=== PATIENT | female | born 1990 | race Hispanic/Latino ===

== ENCOUNTER 2016-06-09 02:23 | Emergency (ER) | payer OTHER ==
[~2016-06-09] VITALS: Ht 157.5 cm; Wt 57.3 kg
[~2016-06-09 02:23] MED LIST: DIPH1TAB PO; HYDR-656 PO; NPR500T PO; ONDA8TAB10 PO
[2016-06-09 02:25] VITALS: BP 118/77; PULSE 82; RESP 16; O2SAT 98
--- NOTE | 2016-06-09 02:32 | ED.REPORT ---
HPI-Allergic Reaction Date of Service Jun 09, 2016 ED Provider: Brian Pate MD Patient is a 25 year old female who presents to the ED due to an allergic reaction to Ibuprofen this evening. She reports having swelling of her lips and tingling at the back of her throat. However, she is improved after taking Cetirizine at home. The patient was seen by a co teacher last year for an abnormal rash and was believed to have an allergy to Ibuprofen. The patient was unsure if this was a true allergy and had not tested since. However, she developed a severe headache yesterday and decided to take Ibuprofen for her symptoms. However, she then awoke from sleep this morning with her symptoms. She denies swelling of her throat, hives, shortness of breath, or wheezing. Nursing Notes Stated Complaint: ALLERGIC REACTION Chief Complaint: Allergic Reaction Nursing Notes Reviewed: Yes Allergies: Coded Allergies: loperamide HCl (Verified Allergy, Mild, Rash, 09/17/15) ibuprofen (Verified Allergy, Unknown, 06/09/16) hives Scheduled Prednisone (PredniSONE) 20 Mg Tablet 20 MG PO TID Scheduled PRN Diphenoxylate/Atropine 2.5-0.025 mg (Lomotil 2.5-0.025 mg) 1 Each Tablet 1 TABLET PO TID PRN PRN For Diarrhea or Loose Stool Naproxen (Naproxen) 500 Mg Tab 500 MG PO BID PRN PRN For Pain Ondansetron ODT (Ondansetron ODT) 8 Mg Tab.rapdis 4-8 MG PO QID PRN PRN For Nausea hydrOXYzine Hcl (HydrOXYzine Hcl) 25 Mg Tablet 25 MG PO TID PRN PRN For Itching General Time Seen by MD: 02:30 Chief Complaint Allergic reaction Hx Obtained From: Patient Arrived By: Walk-in Onset Occurred: Just prior to arrival Symptom Duration: Since onset Severity: Current: No pain currently Severity: Maximum: No pain Recent Healthcare: No recent doctor visit, No recent hospitalization Similar Sx Previous: No Past Medical History Past Medical History Ovarian cyst Past Surgical History None reported Family History noncontributory Smoking History Never Smoker Social History 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 Physical Exam Initial Vital Signs Vital Signs (First) Date Time Temp Pulse Resp B/P Pulse Ox O2 Delivery O2 Flow Rate FiO2 06/09/16 02:25 36.7 82 16 118/77 98 Room Air Initial VS: Reviewed, Vital signs normal Neck: Supple, Full range of motion Extremities: Vascular intact, Neuro intact Neurologic: Alert, Oriented, Nonfocal Psychiatric: Mood/affect normal, Behavior normal, Normal thought content General/Constitutional: Awake, Alert Respiratory / Chest: Breath sounds NL, Breath sounds = bilat, No respiratory distress, No rales, No rhonchi, No wheezing, No stridor Cardiovascular: Heart rate NL, Regular rhythm Skin: No rash (or hives), Warm, Dry Head / Eyes: Normocephalic, PERRL ENT: Airway patent, No facial swelling Mouth: Positive: Lip swelling present (with redness and swelling of the lips and perioral area), Negative: Tongue abnormal (no tongue swelling) Pharynx / Tonsils / Uvula: Positive: Pharyngeal erythema (posterior pharynx is normal) Re-Eval/Medical Decision Med Decision/Clinical Course Mild allergic reaction to ibuprofen, no evidence of anaphylaxis. She responded to treatment with antihistamines and steroids. She will be discharged home with same. She was instructed not to take nonsteroidal anti-inflammatory medications in the future. Source of Hx: Old records Re-Evaluation/Progress : Time of Eval: 04:10 Patient Status: Condition improved Re-Evaluation/Progress Note: Patient states that she is improved. She was directed to stay away from ibuprofen and other NSAIDs. Patient understands and agrees with the plan to be discharged home. Discharge instructions and follow-up discussed. All questions were addressed. Return to the ED warnings given. Counseled Regarding: Diagnosis, Need for follow-up, When/why to return to ED Discharge & Departure Primary Impression: Allergic reaction caused by a drug Disposition: Home Discharge Condition All VS Reviewed: Yes Condition: Stable Patient Instructions: Allergies (ED) Additional Instructions: You had an allergic reaction to ibuprofen. You should avoid anti-inflammatory medications in the future. Benadryl 25 mg 3 times a day or cetirizine once daily for the next 2-3 days. Prednisone 20 mg by mouth 3 times a day for 3 days, #9 prescription written. Return to the emergency room if you have significant worsening or any respiratory distress. Referrals: Catalina Pereira (PCP) Scribe Attestation Portions of this note were transcribed by Kena Arenas. I, Dr. Pate personally performed the history, physical exam and medical decision-making; I reviewed and confirmed the accuracy of the information in the transcribed note. Signed by: Damien Reynaga, 06/09/2016 0415 copies to: Catalina Pereira Howard L MD Jun 09, 2016 02:32 Kena Arenas Jun 09, 2016 02:38
[2016-06-09] MEDS ORDERED: diphenhydrAMINE 50 mg Capsule PO ONE (02:35)
[2016-06-09] MEDS ORDERED: predniSONE 20 mg Tablet PO ONE (02:35)
[2016-06-09 02:38] VITALS: BP 106/98; PULSE 72; RESP 18; O2SAT 98
[2016-06-09] MEDS ORDERED: PRE20 PO (04:12)
[2016-06-09 04:26] VITALS: BP 106/66; PULSE 89; RESP 18; O2SAT 100
== END 2016-06-09 04:18 | disposition home or self-care (01) ==
LOC: SED 02:23
DX: K13.0 Diseases of lips (principal); R20.2 Paresthesia of skin; T39.315A Adverse effect of propionic acid derivatives, initial encounter; Y93.89 Activity, other specified; Y92.89 Other specified places as the place of occurrence of the external cause; Y99.8 Other external cause status; R51 Headache; Z88.8 Allergy status to other drugs, medicaments and biological substances

== ENCOUNTER 2016-12-07 21:47 | Emergency (ER) | payer OTHER ==
[~2016-12-07] VITALS: Ht 157.5 cm; Wt 61.4 kg
[~2016-12-07 21:47] MED LIST changes: +PRE20 PO
[2016-12-07 21:53] VITALS: BP 109/74; PULSE 74; RESP 16; O2SAT 98
--- NOTE | 2016-12-07 22:57 | ED.REPORT ---
HPI-Headache Date of Service Dec 07, 2016 ED Provider: Trung Valle MD Pt is a generally healthy 26 y/o female w/ a hx of migraines presenting to the ED c/o migraine headache onset 14:00 today. The patient states she is experiencing a severe migraine and this is her 3rd severe migraine this year. This headache is typical for her migraines. She c/o associated nausea, vomiting , photophobia, blurry vision. She denies focal numbness/weakness, abdominal pain , neck pain, fever, chills. There is no chance of . Nursing Notes Stated Complaint: MIGRAINE, NAUSEA, BLURRED VISION Chief Complaint: Headache Nursing Notes Reviewed: Yes Allergies: Coded Allergies: NSAIDS (Non-Steroidal Anti-Inflamma (Verified Allergy, Intermediate, Hives , 12/07/16) acetaminophen (Verified Allergy, Intermediate, Hives, 12/07/16) loperamide HCl (Verified Allergy, Mild, Rash, 12/07/16) ibuprofen (Verified Allergy, Unknown, 12/07/16) hives Scheduled Prednisone (PredniSONE) 20 Mg Tablet 20 MG PO TID Scheduled PRN Diphenoxylate/Atropine 2.5-0.025 mg (Lomotil 2.5-0.025 mg) 1 Each Tablet 1 TABLET PO TID PRN PRN For Diarrhea or Loose Stool Naproxen (Naproxen) 500 Mg Tab 500 MG PO BID PRN PRN For Pain Ondansetron ODT (Ondansetron ODT) 8 Mg Tab.rapdis 4-8 MG PO QID PRN PRN For Nausea Ondansetron ODT (Zofran ODT) 4 Mg Tablet 4 MG PO Q4H PRN PRN For Nausea hydrOXYzine Hcl (HydrOXYzine Hcl) 25 Mg Tablet 25 MG PO TID PRN PRN For Itching General Time Seen by MD: 22:56 Chief Complaint Migraine headache Hx Obtained From: Patient Arrived By: Walk-in Sudden in Onset?: No Onset Occurred: 9 - 12 hours ago Symptom Duration: Since onset Location: : Generalized Quality: Aching Severity: Current: Moderate Severity: Maximum: Severe Recent Healthcare: Previous diagnosis Similar Sx Previous: Yes Past Medical History Past Medical History Ovarian cyst Migraines Past Surgical History None reported Family History noncontributory Smoking History Never Smoker Social History Works at [employer], [place]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 Physical Exam Initial Vital Signs Vital Signs (First) Date Time Temp Pulse Resp B/P Pulse Ox O2 Delivery O2 Flow Rate FiO2 12/07/16 21:53 36.6 74 16 109/74 98 Room Air Initial VS: Reviewed, Vital signs normal ENT: Mucous membranes moist, Conjunctiva normal, No scleral icterus Respiratory: Breath sounds normal, Clear to auscultation, No respiratory distress Cardiovascular: Regular rate & rhythm, Heart sounds normal, Intact distal pulses Abdomen / GI: Soft, Non-tender Extremities: Vascular intact, Neuro intact, No swelling Skin: Warm, Dry, No cyanosis Psychiatric: Mood/affect normal, Behavior normal, Normal thought content General/Constitutional: Awake, Alert, No acute distress, Well appearing, Cooperative, Not toxic appearing Head / Eyes: Atraumatic, Normocephalic, PERRL Neck: Atraumatic, Supple, No meningismus, Full range of motion Neurologic: Oriented X3, Speech NL, No motor deficits, No sensory deficits, CN II - XII intact, Cerebellar NL, Memory NL Re-Eval/Medical Decision Med Decision/Clinical Course 26-year-old female history of migraine headache presenting with her typical migraine headaches. She has allergies to Tylenol and nonsteroidal anti-inflammatories. She has no neurological deficits. She has no sign symptoms meningitis. She does not want any pain medications. She is requesting dexamethasone and antiemetics. She was given this and felt much better. She will follow with her primary doctor tomorrow. She was given a prescription for when necessary Zofran. Return precautions given. Counseled Regarding: Diagnosis, Lab results, Need for follow-up, When/why to return to ED Discharge & Departure Impression: Primary Impression: Migraine Migraine type: unspecified Status migrainosus presence: without status migrainosus Intractability: not intractable Qualified Code: G43.909 - Migraine, unspecified, not intractable, without status migrainosus Disposition: Home Discharge Condition All VS Reviewed: Yes Condition: Stable Patient Instructions: Migraine Headache (ED) Additional Instructions: I suspect your headache is caused by a migraine. Your exam is reassuring. Return to the emergency department if you experience persistent severe headache , vomiting, fever, severe neck stiffness, confusion or altered mental status, worsening vision changes, speech changes, or for other concerning signs or symptoms. Follow-up with your primary care doctor in 2-3 days for a recheck. Referrals: Abbey Lopez (PCP) Damien Attestation Portions of this note were transcribed by Kolby Baig. I, Dr. Valle personally performed the history, physical exam and medical decision-making; I reviewed and confirmed the accuracy of the information in the transcribed note. Signed by Damien Bryan, 12/07/16 - [id number] copies to: Abbey Lopez Ben M MD Dec 07, 2016 22:57 KOLBY BAIG Dec 07, 2016 23:06
[2016-12-07] MEDS ORDERED: 0.9% Sodium Chloride 1,000 ML IV ONE (23:08)
[2016-12-07] MEDS ORDERED: MetoCLOpramide 5 mg/mL 2 mL Inj IVPUSH ONE (23:10)
[2016-12-07] MEDS ORDERED: Dexamethasone 10 mg/mL Inj IVPUSH ONE (23:35)
[2016-12-07] MEDS ORDERED: ONDA4TAB9 PO (23:53)
[2016-12-07] MEDS ORDERED: Ondansetron 2 mg/mL 2 mL Inj IVPUSH ONE (23:55)
[2016-12-08] MEDS ORDERED: Ondansetron 2 mg/mL 2 mL Inj IVPUSH PRN
[2016-12-08 00:42] VITALS: BP 121/72; PULSE 98; O2SAT 98
== END 2016-12-08 00:44 | disposition home or self-care (01) ==
LOC: SED 21:47
DX: G43.909 Migraine, unspecified, not intractable, without status migrainosus (principal); Z88.5 Allergy status to narcotic agent; Z88.6 Allergy status to analgesic agent
CPT/HCPCS: 96374; 96375; 99284; J1100; J2765; J7030